=== PATIENT | male | born 1975 | race Caucasian/White ===

== ENCOUNTER 2018-06-21 18:54 | Emergency (ER) | payer MEDICAID ==
[~2018-06-21] VITALS: Ht 175.3 cm; Wt 107.5 kg
[2018-06-21 19:01] VITALS: Ht 175.3 cm; Wt 107.5 kg
[2018-06-21 20:16] VITALS: BP 117/71
== END 2018-06-21 20:16 | disposition home or self-care (01) ==
LOC: ED 18:54
DX: S76.812A Strain of other specified muscles, fascia and tendons at thigh level, left thigh, initial encounter (principal); X50.9XXA Other and unspecified overexertion or strenuous movements or postures, initial encounter; Y93.89 Activity, other specified; Y92.89 Other specified places as the place of occurrence of the external cause; Y99.8 Other external cause status

== ENCOUNTER 2018-10-11 03:24 | Emergency (ER) | payer MEDICAID ==
[~2018-10-11] VITALS: Ht 175.3 cm; Wt 106.6 kg
[2018-10-11 03:28] VITALS: Ht 175.3 cm; Wt 106.6 kg
[2018-10-11 04:55] VITALS: BP 120/76
== END 2018-10-11 04:55 | disposition home or self-care (01) ==
LOC: ED 03:24
DX: R50.9 Fever, unspecified (principal); M79.10 Myalgia, unspecified site
CPT/HCPCS: 87804